=== PATIENT | male | born 1960 | race Caucasian/White ===

== ENCOUNTER 2018-09-25 16:13 | Outpatient (REF) | payer BC, SELFPAY ==
[2018-09-25 21:18] LABS: INR 2.1 (0.9-1.1); Prothrombin Time 20.9 sec (9.3-11.0)
[2018-09-25 21:34] LABS: Anion Gap 9.8 mmol/L (3-11); BUN 24 mg/dL (7-18); CO2 24.2 mmol/L (21.0-32.0); CREATININE 0.99 mg/dL (0.70-1.30); Calcium 8.3 mg/dL (8.5-10.1); Chloride 105 mmol/L (98-107); Cholesterol 270 mg/dL (50-200); Glucose 101 mg/dL (70-100); HDL Cholesterol 27 mg/dL (40-60); LDL CHOLESTEROL 201 mg/dL (<100); Sodium 139 mmol/L (136-145); Triglyceride 261 mg/dL (30-150)
== END 2018-09-25 16:33 ==
LOC: NCHCN 16:13
PROVIDERS: Visit Provider Internal Medicine
DX: E78.5 Hyperlipidemia, unspecified (principal); D68.59 Other primary thrombophilia; Z00.00 Encounter for general adult medical examination without abnormal findings
CPT/HCPCS: 80048; 80061; 83721; 85610

== ENCOUNTER 2019-07-09 16:39 | Outpatient (REF) | payer BC, SELFPAY ==
[2019-07-09 21:45] LABS: Anion Gap 9.3 mmol/L (3-11); BUN 18 mg/dL (7-18); CO2 26.7 mmol/L (21.0-32.0); Calcium 8.7 mg/dL (8.5-10.1); Calculated LDL 271 mg/dL (<100); Chloride 105 mmol/L (98-107); Cholesterol 330 mg/dL (<200); Glucose 85 mg/dL (74-106); HDL Cholesterol 38 mg/dL (40-60); Potassium 4.1 mmol/L (3.5-5.1); Sodium 141 mmol/L (136-145); Triglyceride 105 mg/dL (<150)
== END 2019-07-09 16:59 ==
LOC: NCHCN 16:39
PROVIDERS: Visit Provider Internal Medicine
DX: E78.5 Hyperlipidemia, unspecified (principal)
CPT/HCPCS: 80048; 80061

== ENCOUNTER 2020-05-25 09:25 | Outpatient (REF) | payer BC, SELFPAY ==
[2020-05-25 14:30] LABS: ALT 57 U/L (16-63); AST 32 U/L (15-37); Albumin 3.7 g/dL (3.4-5.0); Alkaline Phosphatase 87 U/L (46-116); Anion Gap 8.2 mmol/L (3-11); BUN 14 mg/dL (7-18); Bilirubin, Total 0.3 mg/dL (0.2-1.0); CO2 25.8 mmol/L (21.0-32.0); CREATININE 0.95 mg/dL (0.70-1.30); Calcium 8.7 mg/dL (8.5-10.1); Calculated LDL 124 mg/dL (<100); Chloride 108 mmol/L (98-107); Cholesterol 179 mg/dL (<200); Glucose 96 mg/dL (74-106); HDL Cholesterol 34 mg/dL (40-60); Potassium 4.1 mmol/L (3.5-5.1); Sodium 142 mmol/L (136-145); Total Protein 6.8 g/dL (6.4-8.2); Triglyceride 108 mg/dL (<150)
[2020-05-25 22:28] LABS: PSA, Screening 1.2 ng/mL (0.0-4.5)
== END 2020-05-25 09:45 ==
LOC: NCHCN 09:25
PROVIDERS: Visit Provider Internal Medicine
DX: E78.5 Hyperlipidemia, unspecified (principal); R03.0 Elevated blood-pressure reading, without diagnosis of hypertension; Z12.5 Encounter for screening for malignant neoplasm of prostate
CPT/HCPCS: 80053; 80061; 84153

== ENCOUNTER 2022-11-26 15:36 | Outpatient (REF) | payer BC, SELFPAY ==
[2022-11-26 15:44] LABS: MCH 32.2 pg (27.0-33.0); MCV 95 fL (80-95); MPV 10.5 fL (8.0-11.0); Platelet Count 216 10^3/uL (130-400); RBC 4.97 10^6/uL (4.36-5.78); RDW 12.4 % (11.8-14.1); RDW-SD 42.8 fL; WBC 5.76 10^3/uL (4.4-10.8)
== END 2022-11-26 15:37 | disposition home or self-care (01) ==
LOC: NCHCN 15:36
PROVIDERS: Visit Provider Internal Medicine
DX: Z00.00 Encounter for general adult medical examination without abnormal findings (principal); D68.59 Other primary thrombophilia
CPT/HCPCS: 85027

== ENCOUNTER 2022-12-03 11:34 | Outpatient (REF) | payer BC, SELFPAY ==
[2022-12-03 15:59] LABS: ALT 23 U/L (16-63); AST 14 U/L (15-37); Albumin 3.7 g/dL (3.4-5.0); Alkaline Phosphatase 71 U/L (46-116); Anion Gap 9.3 mmol/L (3-11); BUN 9 mg/dL (7-18); Bilirubin, Total 0.4 mg/dL (0.2-1.0); CO2 25.7 mmol/L (21.0-32.0); CREATININE 0.8 mg/dL (0.70-1.30); Calcium 8.8 mg/dL (8.5-10.1); Calculated LDL 233 mg/dL (<100); Chloride 108 mmol/L (98-107); Cholesterol 289 mg/dL (<200); Estimated GFR 99.44 (mL/min/1.73m2); Glucose 92 mg/dL (74-106); HDL Cholesterol 42 mg/dL (40-60); Potassium 4.2 mmol/L (3.5-5.1); Sodium 143 mmol/L (136-145); Total Protein 6.9 g/dL (6.4-8.2); Triglyceride 73 mg/dL (<150)
[2022-12-04 09:26] LABS: PSA, Screening 1.1 ng/mL (<=4.5)
== END 2022-12-03 11:35 | disposition home or self-care (01) ==
LOC: NCHCN 11:34
PROVIDERS: Visit Provider Internal Medicine
DX: Z00.00 Encounter for general adult medical examination without abnormal findings (principal); E78.5 Hyperlipidemia, unspecified; D68.59 Other primary thrombophilia; Z12.5 Encounter for screening for malignant neoplasm of prostate; M54.2 Cervicalgia
CPT/HCPCS: 80053; 80061; 84153

== ENCOUNTER 2024-12-28 16:13 | Outpatient (REF) | payer BC, SELFPAY ==
[2024-12-28 14:54] LABS: HCT 47.2 % (40.0-50.0); HGB 15.6 g/dL (13.5-17.5); MCH 31.5 pg (27.0-33.0); MCHC 33.1 % (32.0-36.0); MCV 95 fL (80-95); MPV 10.0 fL (8.0-11.0); Platelet Count 210 10^3/uL (130-400); RBC 4.96 10^6/uL (4.36-5.78); RDW 12.4 % (11.8-14.1); RDW-SD 43.8 fL; WBC 6.14 10^3/uL (4.4-10.8)
[2024-12-28 15:04] LABS: Anion Gap 5.4 mmol/L (3-11); BUN 10 mg/dL (7-18); CO2 30.6 mmol/L (21.0-32.0); Calcium 8.9 mg/dL (8.5-10.1); Calculated LDL 135 mg/dL (<100); Chloride 107 mmol/L (98-107); Cholesterol 201 mg/dL (<200); Estimated GFR 98.21 (mL/min/1.73m2); Glucose 96 mg/dL (74-106); HDL Cholesterol 53 mg/dL (>or=40); Potassium 4.5 mmol/L (3.5-5.1); Sodium 143 mmol/L (136-145); Triglyceride 67 mg/dL (<150)
== END 2024-12-28 16:14 | disposition home or self-care (01) ==
LOC: NCHCN 16:13
PROVIDERS: PCP Internal Medicine; Visit Provider Internal Medicine
DX: E78.5 Hyperlipidemia, unspecified (principal); Z86.711 Personal history of pulmonary embolism
CPT/HCPCS: 80048; 80061; 85027